=== PATIENT | male | born 1955 | race Two or more races ===

== ENCOUNTER 2022-07-30 13:58 | Outpatient (CLI) | payer MEDICARE, OTHER | END 2022-07-30 23:59 | disposition home or self-care (01) | LOC: LAB 13:58 | PROVIDERS: ATTEND Surgery | DX: Z01.812 Encounter for preprocedural laboratory examination (principal); Z20.822 Contact with and (suspected) exposure to COVID-19 | CPT/HCPCS: U0003; C9803 ==

== ENCOUNTER 2022-08-06 09:59 | Day surgery (SDC) | payer MEDICARE, OTHER | END 2022-08-06 14:30 | disposition home or self-care (01) | LOC: DS 09:59 | PROVIDERS: ATTEND Surgery | DX: Z12.11 Encounter for screening for malignant neoplasm of colon (principal); K44.9 Diaphragmatic hernia without obstruction or gangrene; K21.00 Gastro-esophageal reflux disease with esophagitis, without bleeding; K21.9 Gastro-esophageal reflux disease without esophagitis; D12.4 Benign neoplasm of descending colon; D12.3 Benign neoplasm of transverse colon; E78.5 Hyperlipidemia, unspecified; I10 Essential (primary) hypertension; Z98.890 Other specified postprocedural states; Z79.899 Other long term (current) drug therapy | CPT/HCPCS: 45385; 45380; 43239; 71045; J2704; J7030 ==